=== PATIENT | female | born 1985 | race Caucasian/White ===

== ENCOUNTER → 2018-12-31 09:40 | Outpatient (CLI) | payer OTHER, SELFPAY ==
[2018-12-31 10:09] LABS: Add Manual Diff / Slide Review NO; Basophils Absolute Auto 0 /uL (0-100); Basophils Percent Auto 0.1 % (0-2); Eosinophils Absolute Auto 0 /uL (0-450); Eosinophils Percent Auto 0.1 % (2-4); Hematocrit 37.9 % (36-46); Hemoglobin 12.7 g/dL (12.0-16.0); Lymphocytes Absolute Auto 1400 /uL (1100-4500); Lymphocytes Percent Auto 16.8 % (25-40); Mean Corpuscular HGB Conc 33.6 % (30-36); Mean Corpuscular Hemoglobin 29.7 PG (26-34); Mean Corpuscular Volume 88.5 fL (80-100); Monocytes Absolute Auto 600 /uL (0-900); Monocytes Percent Auto 6.9 % (3-14); Neutrophils Absolute Auto 6300 /uL (1500-7000); Neutrophils Percent Auto 76.1 % (50-75); Platelet Count 257 X10^3/uL (150-400); Red Blood Cell Count 4.28 X10^6/uL (4.0-5.2); Red Cell Distribution Width 14.3 % (11.6-14.8); White Blood Cell Count 8.3 X10^3/uL (4.5-11.0)
[2018-12-31 10:42] LABS: Appearance Urine UA SL CLOUDY; Bilirubin Urine UA NEGATIVE (NEGATIVE); Color Urine UA YELLOW; Glucose Urine UA NEGATIVE (Negative); Ketones Urine UA NEGATIVE (NEGATIVE); Leukocyte Esterase Urine UA 1+ (NEGATIVE); Nitrite Urine UA POSITIVE (Negative); Occult Blood Urine UA NEGATIVE (Negative); Protein Urine UA NEGATIVE (Negative); Urobilinogen Urine UA 0.2 E.U./dL (0.2); pH Urine UA 6.5 (4.5-8.0)
[2018-12-31 11:02] LABS: RBC Urine 0-1/HPF (0-5/HPF); Squamous Epithelial Cell Urine 1-5 /HPF (0-5/HPF); WBC Urine 5-10/HPF (0-5/HPF)
[2018-12-31 11:03] LABS: Bacteria Urine Many (>30)
[2018-12-31 12:18] LABS: Hepatitis B Surface Antigen NEGATIVE s/c (NEGATIVE); Rubella Antibody IgG 26.2 IU/mL (>15)
[2018-12-31 12:32] LABS: HIV 1 and 2 Antibody NEGATIVE (NEGATIVE); Hep C Virus Ab w/Reflex Quant NEGATIVE s/c (NEGATIVE)
[2019-01-02 21:01] LABS: RPR Screen Nonreactive (Nonreactive)
== END ==
PROVIDERS: Visit Provider Family Medicine
DX: Z34.81 Encounter for supervision of other normal pregnancy, first trimester (principal)
CPT/HCPCS: 36415; 80055; 81003; 81015; 86703; 86787; 86803; 86850; 86900; 86901; 87077; 87086; 87186

== ENCOUNTER → 2019-01-08 13:44 | Outpatient (CLI) | payer OTHER, SELFPAY | PROVIDERS: PCP Family Medicine; Visit Provider Family Medicine | DX: R82.998 Other abnormal findings in urine (principal) | CPT/HCPCS: 87077; 87086; 87186 ==

== ENCOUNTER → 2019-01-13 08:59 | Outpatient (CLI) | payer OTHER, SELFPAY ==
[2019-01-20 14:25] LABS: Informaseq SEE SEPARATE REPORTS
== END ==
PROVIDERS: PCP Family Medicine; Visit Provider Family Medicine
DX: O09.529 Supervision of elderly multigravida, unspecified trimester (principal); Z36.9 Encounter for antenatal screening, unspecified; Z3A.11 11 weeks gestation of pregnancy
CPT/HCPCS: 36415; 81507

== ENCOUNTER → 2019-02-03 12:38 | Outpatient (CLI) | payer OTHER, SELFPAY ==
--- NOTE | 2019-02-03 12:39 | DI.US.S_ITS ---
PROCEDURE: US RENAL COMPLETE INDICATIONS: HISTORY KIDNEY STONES TECHNIQUE: Real-time scanning was performed of the kidneys and bladder, with image documentation. COMPARISON: None. FINDINGS: Kidneys: Kidneys are normal in size. Right kidney measures 12.3 cm long; left kidney measures 12.3 cm long. Right renal cortical thickness is 1.7 cm; left renal cortical thickness is 2.0 cm. Renal cortical echotexture is normal. No hydronephrosis. 5.6 mm nonobstructing right renal calcification. Bladder: Pre-void bladder volume is 99 mL. Post-void residual is 0 mL. Pre-void images demonstrate no intraluminal masses or stones. On pre-void images, neither ureteral jets are noted with color Doppler interrogation. (Of note, ureteral jets may not be detectable in up to 25% of cases due to insufficient differences in specific gravity between ureteral and bladder urine). Miscellaneous: No free pelvic fluid. IMPRESSION: 5.6 mm nonobstructing right renal calcification. Dictated by: Mikel Cline [facility] Interpreted: Jessica Renee MD on 02/03/2019 at 13:46 Approved by: Jessica Renee M.D. on 02/03/2019 at 14:40
== END ==
PROVIDERS: PCP Family Medicine; Visit Provider Family Medicine
DX: O26.899 Other specified pregnancy related conditions, unspecified trimester (principal); R10.9 Unspecified abdominal pain; N20.0 Calculus of kidney
CPT/HCPCS: 76770

== ENCOUNTER → 2019-02-26 11:14 | Outpatient (CLI) | payer OTHER, SELFPAY ==
[2019-02-26 14:59] LABS: Appearance Urine UA CLOUDY; Bilirubin Urine UA NEGATIVE (NEGATIVE); Color Urine UA YELLOW; Glucose Urine UA NEGATIVE (Negative); Ketones Urine UA NEGATIVE (NEGATIVE); Leukocyte Esterase Urine UA 1+ (NEGATIVE); Nitrite Urine UA POSITIVE (Negative); Occult Blood Urine UA TRACE-INTACT (Negative); Protein Urine UA NEGATIVE (Negative); Urobilinogen Urine UA 0.2 E.U./dL (0.2); pH Urine UA 6.5 (4.5-8.0)
[2019-02-26 15:16] LABS: Bacteria Urine Many (>30); Culture Indicated Urine Specimen Cultured; RBC Urine 5-10/HPF (0-5/HPF); Squamous Epithelial Cell Urine 1-5 /HPF (0-5/HPF); Transitional Epi Cells Urine 1-5/HPF (0-5/HPF); WBC Urine 30-100/HPF (0-5/HPF)
== END ==
PROVIDERS: PCP Family Medicine; Visit Provider Family Medicine
DX: R82.998 Other abnormal findings in urine (principal)
CPT/HCPCS: 81001; 87077; 87086; 87186

== ENCOUNTER → 2019-03-21 10:32 | Outpatient (CLI) | payer OTHER, SELFPAY ==
[2019-03-21 12:53] LABS: Appearance Urine UA SL CLOUDY; Bilirubin Urine UA NEGATIVE (NEGATIVE); Color Urine UA YELLOW; Glucose Urine UA NEGATIVE (Negative); Ketones Urine UA NEGATIVE (NEGATIVE); Leukocyte Esterase Urine UA 3+ (NEGATIVE); Nitrite Urine UA POSITIVE (Negative); Occult Blood Urine UA TRACE-LYSED (Negative); Protein Urine UA NEGATIVE (Negative); Specific Gravity Urine UA <=1.005 (1.000-1.035); Urobilinogen Urine UA 0.2 E.U./dL (0.2)
[2019-03-21 13:18] LABS: Bacteria Urine Many (>30); RBC Urine 0-1/HPF (0-5/HPF); Squamous Epithelial Cell Urine 1-5 /HPF (0-5/HPF); WBC Urine 30-100/HPF (0-5/HPF)
[2019-03-21 13:19] LABS: Culture Indicated Urine Specimen Cultured
== END ==
PROVIDERS: PCP Family Medicine; Visit Provider Nurse Practitioner Family
DX: R10.2 Pelvic and perineal pain (principal)
CPT/HCPCS: 81001; 87077; 87086; 87186

== ENCOUNTER → 2019-04-28 16:56 | Outpatient (CLI) | payer OTHER, SELFPAY | PROVIDERS: PCP Family Medicine; Visit Provider Family Medicine | DX: Z34.82 Encounter for supervision of other normal pregnancy, second trimester (principal); Z3A.26 26 weeks gestation of pregnancy | CPT/HCPCS: 87077; 87086; 87186 ==

== ENCOUNTER → 2019-05-06 12:43 | Outpatient (CLI) | payer OTHER, SELFPAY ==
[2019-05-06 14:29] LABS: Hematocrit 30.3 % (36-46); Hemoglobin 10.3 g/dL (12.0-16.0)
[2019-05-06 15:37] LABS: GTT (PREG) 1 Hour PP 50gm Dose 127 mg/dL (76-139)
[2019-05-06 16:25] LABS: HIV 1 & 2 Ab/Ag 4th Gen Combo NEGATIVE (NEGATIVE)
== END ==
PROVIDERS: PCP Family Medicine; Visit Provider Family Medicine
DX: O23.12 Infections of bladder in pregnancy, second trimester (principal); Z34.82 Encounter for supervision of other normal pregnancy, second trimester; Z3A.26 26 weeks gestation of pregnancy
CPT/HCPCS: 36415; 82105; 82950; 85014; 85018; 87389

== ENCOUNTER → 2019-05-21 12:00 | Outpatient (CLI) | payer OTHER, SELFPAY ==
--- NOTE | 2019-05-21 12:01 | DI.US.S_ITS ---
PROCEDURE: US OB LIMITED INDICATIONS: REEVALUATE CERVICAL LENGTH OUTSIDE/PRIOR DATING DATA: Last menstrual period (LMP): 10/27/18. LMP-based estimated date of delivery (BRANDIE): 08/03/19. TECHNIQUE: Real-time scanning was performed of the fetus, with image documentation. COMPARISON: None. FINDINGS: A single living intrauterine gestation is present. Presentation: Vertex Placenta: Placental position is left anterior, without previa. Amniotic fluid index: 16.0 cm, normal range is 5-24 cm. heart rate: 149 beats per minute. Maternal cervical canal: 3.4 cm long. Estimated gestational age from initial scan: 29 weeks 3 days. IMPRESSION: Limited study at clinician request evaluate cervical length of the mother, which is normal at 3.4 cm. Dictated by: Chinmay Varma M.D. on 05/21/2019 at 14:17 Approved by: Chinmay Varma M.D. on 05/21/2019 at 14:19
== END ==
PROVIDERS: PCP Family Medicine; Visit Provider Family Medicine
DX: O26.893 Other specified pregnancy related conditions, third trimester (principal); R10.2 Pelvic and perineal pain; Z3A.29 29 weeks gestation of pregnancy
CPT/HCPCS: 76815; 76817

== ENCOUNTER 2019-06-12 11:43 | Inpatient (IN) | payer OTHER, SELFPAY ==
[2019-06-12] MEDS: LACTATED RINGERS 1,000 ML 1000 ML IV (12:30)
--- NOTE | 2019-06-12 12:54 | DI.US.S_ITS ---
PROCEDURE: US OB LIMITED INDICATIONS: 32 weeks pre term labor OUTSIDE/PRIOR DATING DATA: Last menstrual period (LMP): 10/27/18. LMP-based estimated date of delivery (BRANDIE): 08/03/19. First dating scan (date and location): None available. Previous ultrasound for cervical length performed on 05/21/19 Estimated date of delivery (BRANDIE) from first dating scan: N./A.. TECHNIQUE: Real-time scanning was performed of the fetus, with image documentation. Endovaginal scanning: Yes COMPARISON: [facility], OB LIMITED, 05/21/2019, 12:14. FINDINGS: A single living intrauterine gestation is present. Presentation: Vertex Placenta: Placental position is anterior, without previa. Amniotic fluid index: 18.1 cm, normal range is 5-24 cm. heart rate: 132 beats per minute. Maternal cervical canal: 3.4 cm long, closed. Previous measurement was 3.4 cm. Estimated gestational age from LMP: 32 weeks 4 days. IMPRESSION: Normal, stable cervical length. Normal amniotic fluid. Dictated by: Don Carolina M.D. on 06/12/2019 at 14:33 Approved by: Don Carolina M.D. on 06/12/2019 at 14:37
[2019-06-12] MEDS: NIFEdipine 10 MG CAPSULE PO ×4 (13:04→14:18)
[2019-06-12 13:08] LABS: Bacteria Urine None Seen; RBC Urine None Seen (0-5/HPF)
[2019-06-12 13:10] LABS: Appearance Urine UA CLEAR; Bilirubin Urine UA NEGATIVE (NEGATIVE); Color Urine UA YELLOW; Glucose Urine UA NEGATIVE (Negative); Ketones Urine UA NEGATIVE (NEGATIVE); Leukocyte Esterase Urine UA 2+ (NEGATIVE); Nitrite Urine UA NEGATIVE (Negative); Occult Blood Urine UA NEGATIVE (Negative); Protein Urine UA NEGATIVE (Negative); Urobilinogen Urine UA 0.2 E.U./dL (0.2)
[2019-06-12 13:11] LABS: Add Manual Diff / Slide Review NO; Basophils Absolute Auto 0 /uL (0-100); Basophils Percent Auto 0.5 % (0-2); Eosinophils Absolute Auto 0 /uL (0-450); Eosinophils Percent Auto 0.1 % (2-4); Hematocrit 31.4 % (36-46); Hemoglobin 10.2 g/dL (12.0-16.0); Lymphocytes Absolute Auto 1900 /uL (1100-4500); Lymphocytes Percent Auto 19.3 % (25-40); Mean Corpuscular HGB Conc 32.4 % (30-36); Mean Corpuscular Hemoglobin 27.9 PG (26-34); Mean Corpuscular Volume 86.2 fL (80-100); Monocytes Absolute Auto 800 /uL (0-900); Monocytes Percent Auto 8.4 % (3-14); Neutrophils Absolute Auto 7200 /uL (1500-7000); Neutrophils Percent Auto 71.7 % (50-75); Platelet Count 296 X10^3/uL (150-400); Red Blood Cell Count 3.64 X10^6/uL (4.0-5.2); Red Cell Distribution Width 13.8 % (11.6-14.8)
[2019-06-12 13:19] LABS: Culture Indicated Urine Specimen Cultured; WBC Urine 5-10/HPF (0-5/HPF)
--- NOTE | 2019-06-12 13:20 | PM.HP.1 ---
History of Present Illness History of Present Illness Date Patient Seen: 06/12/19 Time Patient Seen: 13:20 Chief complaint: Narrative: 34-year-old G5 para 3 estimated due date of 07/30/2019 consistent with LMP and early ultrasound. care problems include history of premature and precipitous delivery recurrent urinary tract infections kidney stones and anemia. Patient's care has been followed by maternal medicine. She was given Prometrium vaginally for pre term labor as well as daily Keflex for recurrent urinary tract infections with E coli and kidney stones. She is also on iron supplementation because of anemia. Patient has had routine follow-up in care. And last ultrasound done May 21 so cervical length greater than 3 cm. Patient states she was doing fine. Last night had some mild intermittent contractions. Then this morning woke up and her contractions became more regular. And even had some uncomfortableness. At that point patient proceeded to present to the labor and delivery floor for evaluation. Patient denies any fevers or chills. Patient denies any vaginal bleeding. Patient denies any leakage of fluid. She is complaining of intermittent contractions. No complaints of headache dizziness lightheadedness chest pain fevers chills nausea vomiting. history was reviewed. Vaginal delivery at 38 weeks vaginal delivery at 35 weeks and vaginal delivery at 33 weeks. Patient's medical history includes allergies to sulfa Phenergan seasonal allergies kidney stones and urinary tract infection history of cholecystectomy and wisdom teeth. Social history does not smoke or use recreational drugs occasional alcohol when not Gynecological history history of abnormal Pap smears with HPV positive and colposcopy x3. Denies history of gonorrhea or chlamydia. labs blood type AB-positive antibody screen negative recent hemoglobin hematocrit 12.7 and 37.9 platelet count 257 VDRL nonreactive hepatitis-B surface antigen negative HIV negative GC chlamydia negative rubella immune hep C negative Pap smear within normal limits varicella immune. Cell free DNA negative for genetic defects Patient History Family & Social History Tobacco & Substance use: Smoking Status Never smoker Meds Home Medications and Allergies Home Medications Medication Instructions Recorded Confirmed Type prenat.vits,chris,[id number] 1 tab PO DAILY 12/17/18 05/26/19 History acetaminophen 500 mg tablet 1,000 mg PO QID PRN 03/21/19 05/26/19 History progesterone micronized 200 mg 200 mg PO BEDTIME 03/21/19 05/26/19 History capsule cephalexin 500 mg capsule 500 mg PO DAILY #30 cap 03/31/19 05/26/19 Rx Allergies Allergy/AdvReac Type Severity Reaction Status Date / Time promethazine [From Phenergan] Allergy Verified 05/26/19 16:03 Sulfa (Sulfonamide Allergy Verified 05/26/19 16:03 Antibiotics) Exam Narrative Exam Narrative: . General: Alert no apparent distress. Affect is appropriate. HEENT: Neck is supple without lymphadenopathy pupils equal round and reactive. Cardio: S1-S2 regular rate and rhythm. Respiratory: Lungs clear to auscultation. Abdomen: Gravid. Extremities: Normal deep tendon reflexes trace edema. Vaginal exam: Thick cervix soft midline closed [place]: Intermittent contractions heart tones: Category 1 tracing Objective Labs Result Diagrams: 06/12/19 12:50 Labs: Laboratory Results - last 24 hr 06/12/19 06/12/19 12:50 12:50 WBC 10.0 RBC 3.64 L Hgb 10.2 L Hct 31.4 L MCV 86.2 MCH 27.9 MCHC 32.4 RDW 13.8 Plt Count 296 Neut % (Auto) 71.7 Lymph % (Auto) 19.3 L [place] % (Auto) 8.4 Eos % (Auto) 0.1 L Baso % (Auto) 0.5 Neut # (Auto) 7200 H Lymph # (Auto) 1900 [place] # (Auto) 800 Eos # (Auto) 0 Baso # (Auto) 0 Urine Color Yellow Urine Appearance Clear Urine pH 7.0 Ur Specific [place] 1.010 Urine Protein Negative Urine Glucose (UA) Negative Urine Ketones Negative Urine Occult Blood Negative Urine Nitrate Negative Urine Bilirubin Negative Urine Urobilinogen 0.2 Ur Leukocyte Esterase 2+ H Urine RBC None seen Urine WBC 5-10/hpf H Urine Bacteria None seen Ur Culture Indicated? Specimen cultured Assessment & Plan Assessment & Plan narrative: 34-year-old G5 para 3 at 32 and 6 7th weeks gestational age consistent with LMP and early ultrasound in labor. Patient has a history of early labor with perceptive deliveries. Patient is rena regularly. She is afebrile vital signs are stable. Send for CBC and urinalysis. fibronectin test. Ultrasound for Cervical length. Start nifedipine per protocol. Provide betamethasone 12 mg IM. Depending on the information collected above. And because of patient's high risk status and previous history of delivery. Follow-up information. Patient's cervical length on ultrasound is 3.2. fibronectin is negative. Urinalysis shows 2+ leukocyte Estrace which will be sent for culture. Patient was given betamethasone 12 mg IM started on 2 g of Ancef. Patient was given nifedipine per the protocol. Patient had gradual improvement of contractions. But for contractions after while started to speed up her contractions became moderately intense again. During hospital stay vital signs were stable. After talking with the will be specialist at [facility] recommendation for patient to be transferred because of high risk . Patient will be transferred there and the accepting physician will be dr Clancy.
[2019-06-12 13:27] LABS: Strep Grp B PCR NEG for Grp B Strep
[2019-06-12] MEDS: BETAMETHASONE 30 MG/5 ML MDV 12 MG IM (13:35)
[2019-06-12 13:37] LABS: Fetal Fibronectin Negative
[2019-06-12] MEDS: CEFAZOLIN 2 GM/100 ML FROZ.PIGGY IV (14:04)
== END 2019-06-12 16:43 | disposition short-term general hospital (02) | DRG 832 ==
PROVIDERS: Admitting Provider Family Medicine; PCP Family Medicine; Visit Provider Family Medicine
DX: O60.03 Preterm labor without delivery, third trimester (principal); O23.43 Unspecified infection of urinary tract in pregnancy, third trimester; N39.0 Urinary tract infection, site not specified; O09.213 Supervision of pregnancy with history of pre-term labor, third trimester; Z3A.32 32 weeks gestation of pregnancy; O99.013 Anemia complicating pregnancy, third trimester
CPT/HCPCS: 59025; 59050; 76815; 76817; 81001; 82731; 85025; 87077; 87081; 87086; 87186; 87653; 96360; 96372; 99222; G0378; G0379; J0690; J0702

== ENCOUNTER 2019-07-07 19:30 | Inpatient (IN) | payer OTHER, SELFPAY ==
--- NOTE | 2019-07-07 20:12 | PM.HP.1 ---
History of Present Illness History of Present Illness Date Patient Seen: 07/07/19 Time Patient Seen: 20:12 Chief complaint: obs Narrative: [age] G5 para 3 with an estimated due date of 08 02 2019 based on LMP and 07/30/2019 based on ultrasound which puts her at 36 weeks and 4 days. care complicated with history of premature and pre separate if deliveries kidney stones with urinary tract infections recurrent during on prophylactics Keflex and anemia on iron supplementation. Patient followed by Maternal- Medicine. She was on Prometrium vaginal up to 36 weeks Keflex from 20/6 weeks on ferrous gluconate. And vitamins. Patient had 2 different admissions to [facility] for labor was in the hospital for a week or so on magnesium. Patient then was released and then ended up going back 1 additional time because of pre term labor. She presents to our labor and delivery floor this evening with contraction regularly for the last 4 hours. She was found to be dilated to 7 cm with an intact bag and rena regularly. Vital signs were stable she was afebrile GBS status is negative. labs AB-positive blood type antibody screen negative hemoglobin 37.9 VDRL nonreactive hepatitis C negative hepatitis B negative GC chlamydia negative rubella immune genetic screening with cell free DNA negative. Twenty week ultrasound normal as well as multiple other ultrasounds normal anatomical screen. Medical history includes seasonal allergies anemia kidney stones with recurrent urinary tract infection The social history no smoking no alcohol during no recreational drugs stable partner relationship Gynecological history history of HPV colposcopy x3 Surgical history wisdom teeth lap choly Patient History Family & Social History Tobacco & Substance use: Smoking Status Never smoker Meds Home Medications and Allergies Home Medications Medication Instructions Recorded Confirmed Type prenat.vits,chris,[id number] 1 tab PO DAILY 12/17/18 07/02/19 History acetaminophen 500 mg tablet 1,000 mg PO QID PRN 03/21/19 07/02/19 History progesterone micronized 200 mg 200 mg PO BEDTIME 03/21/19 07/02/19 History capsule cephalexin 500 mg capsule 500 mg PO DAILY #30 cap 03/31/19 07/02/19 Rx Allergies Allergy/AdvReac Type Severity Reaction Status Date / Time promethazine [From Phenergan] Allergy Verified 07/02/19 09:57 Sulfa (Sulfonamide Allergy Verified 01/08/20 09:57 Antibiotics) Exam Narrative Exam Narrative: . General: Alert no apparent distress. Affect is appropriate. Rena it is uncomfortable. HEENT: Neck is supple without lymphadenopathy pupils equal round and reactive. Cardio: S1-S2 regular rate and rhythm. Respiratory: Lungs clear to auscultation. Abdomen: Gravid. Extremities: Normal deep tendon reflexes trace edema. Vaginal cervix exam: 9 cm bulging bag [place]: Rena regularly every 3-5 minutes with 60 minute contractions moderate and strength. heart tones: Category 2 tracing Assessment & Plan Assessment & Plan narrative: 34-year-old G5 para 3 at 36 weeks and 4 days gestational age in active labor history of labor precepted this delivery. Patient has a bulging bag at 9 cm. In patient care orders were written for. Type and screen anemia test and IV fluids were started. Patient's consent and plan were discussed with patient and partner. Questions were answered including risks benefits and complications up and delivery.
[2019-07-07] MEDS: LACTATED RINGERS 1,000 ML 125 ML IV (20:15)
[2019-07-07 20:39] LABS: Add Manual Diff / Slide Review NO; Basophils Absolute Auto 100 /uL (0-100); Basophils Percent Auto 0.9 % (0-2); Eosinophils Absolute Auto 0 /uL (0-450); Eosinophils Percent Auto 0.2 % (2-4); Hematocrit 33.4 % (36-46); Hemoglobin 10.9 g/dL (12.0-16.0); Lymphocytes Absolute Auto 2800 /uL (1100-4500); Lymphocytes Percent Auto 23.5 % (25-40); Mean Corpuscular HGB Conc 32.6 % (30-36); Mean Corpuscular Hemoglobin 27.4 PG (26-34); Mean Corpuscular Volume 84.3 fL (80-100); Monocytes Absolute Auto 1100 /uL (0-900); Neutrophils Absolute Auto 7800 /uL (1500-7000); Neutrophils Percent Auto 66.4 % (50-75); Platelet Count 265 X10^3/uL (150-400); Red Blood Cell Count 3.97 X10^6/uL (4.0-5.2); Red Cell Distribution Width 15.8 % (11.6-14.8); White Blood Cell Count 11.8 X10^3/uL (4.5-11.0)
--- NOTE | 2019-07-07 20:51 | PM.PROC.1 ---
Procedures Date/Time Date of procedure: 07/07/19 Time of procedure: 20:52 General Procedure description: Vaginal delivery Stage I of labor. Approximately 4 hours. Patient presented to labor and delivery for at 7 cm bulging bag. heart tones were reassuring vital signs were stable blood type was drawn. IV fluids was started. Patient had rapid progression from 7 cm to complete. At complete she had rupture of membranes with clear fluid copious amounts. Rupture of membrane was at +1 station. Patient then immediately began pushing. During stage I of labor per patient had the category 1 and category 2 tracing. Mom had no anesthesia. GBS status was negative. Stage II of labor. Approximately 15 minutes. Delivery of female infant in the vertex position occiput anterior. Patient made rapid descent through the canal. Mom did well through the pushing stage. Had the delivery of the head. Baby was found to have a nuchal cord which was cut and clamped before the delivery of the shoulders. Patient was placed on mother's abdomen baby spontaneously cried was vigorous. Had good color good tone. Category 2 tracing with the decelerations consistent with early and variable D cells. Stage III of labor. Delivery of intact placenta 5 minutes after the of the baby. Three-vessel cord. Placenta looked intact. Mom's blood loss was estimated to be at 200 cc mom and baby were resting comfortably. Mom was given 10 units of IM Pitocin. On inspection of the vagina and cervix there were no cervical or vaginal tears that needed to be repaired.
[2019-07-07] MEDS: LANOLIN OINT 7 GM 1 APPLIC TOP (22:38)
[2019-07-07] MEDS: IBUPROFEN 600 MG TABLET PO (22:38)
[2019-07-07] MEDS: HYDROCODONE/ACET 5/325 TABLET 1 TAB PO (22:39)
[2019-07-08 01:03] VITALS: BP 139/58
[2019-07-08] MEDS: IBUPROFEN 600 MG TABLET PO ×2 (04:30→10:36)
[2019-07-08 05:15] LABS: Hematocrit 31.5 % (36-46); Hemoglobin 10.2 g/dL (12.0-16.0)
--- NOTE | 2019-07-08 07:58 | PM.PN.1 ---
Subjective Subjective Date Patient Seen: 07/08/19 Time Patient Seen: 07:58 Interval history: Patient seen and evaluated this morning doing well. Did well overnight. On ibuprofen for pain. M mild vaginal bleeding. Eating well and tolerating oral foods. Mild lower extremity edema no headache blurry vision. Chest pain or shortness of breath. Exam Vital Signs (past 8 hours): - 07/08/19 01:03 Blood Pressure 139/58 L Narrative Exam Narrative: General: Alert no apparent distress. Affect is appropriate. [place] it is uncomfortable. HEENT: Neck is supple without lymphadenopathy pupils equal round and reactive. Cardio: S1-S2 regular rate and rhythm. Respiratory: Lungs clear to auscultation. Abdomen: Uterus firm. Extremities: Normal deep tendon reflexes trace edema. Objective Labs Result Diagrams: 07/08/19 04:56 Labs: Laboratory Results - last 24 hr 07/07/19 07/07/19 07/08/19 20:22 20:22 04:56 WBC 11.8 H RBC 3.97 L Hgb 10.9 L 10.2 L Hct 33.4 L 31.5 L MCV 84.3 MCH 27.4 MCHC 32.6 RDW 15.8 H Plt Count 265 Neut % (Auto) 66.4 Lymph % (Auto) 23.5 L [place] % (Auto) 9.0 Eos % (Auto) 0.2 L Baso % (Auto) 0.9 Neut # (Auto) 7800 H Lymph # (Auto) 2800 [place] # (Auto) 1100 H Eos # (Auto) 0 Baso # (Auto) 100 Blood Type AB Positive Antibody Screen Negative Assessment & Plan Assessment & Plan narrative: Post operative day 1. Vaginal delivery without complications. Patient is doing well. Vital signs are stable. Hemoglobin hematocrit looks good. DC IV today. Continue with IV fluids. Up ambulate. Ibuprofen for pain. Breast-feeding is going well. Continue to monitor. Anticipate discharge tomorrow.
[2019-07-08] MEDS: PRENATAL VIT,CALC/IRON/FOLIC 1 TABLET 1 TAB PO (09:09)
[2019-07-08] MEDS: DOCUSATE 100 MG CAPSULE PO (09:09)
[2019-07-09] MEDS: IBUPROFEN 600 MG TABLET PO (06:18)
[2019-07-09] MEDS: PRENATAL VIT,CALC/IRON/FOLIC 1 TABLET 1 TAB PO (07:52)
[2019-07-09] MEDS: DOCUSATE 100 MG CAPSULE PO (07:52)
--- NOTE | 2019-07-09 07:57 | P.DS_ITS ---
History of Present Illness History of Present Illness Chief complaint: maternity Narrative: [age] G5 para 3 with an estimated due date of 08 02 2019 based on LMP and 07/30/2019 based on ultrasound which puts her at 36 weeks and 4 days. care complicated with history of premature and pre separate if deliveries kidney stones with urinary tract infections recurrent during on prophylactics Keflex and anemia on iron supplementation. Patient followed by Maternal- Medicine. She was on Prometrium vaginal up to 36 weeks Keflex from 20/6 weeks on ferrous gluconate. And vitamins. Patient had 2 different admissions to [facility] for labor was in the hospital for a week or so on magnesium. Patient then was released and then ended up going back 1 additional time because of pre term labor. She presents to our labor and delivery floor this evening with contraction regularly for the last 4 hours. She was found to be dilated to 7 cm with an intact bag and rena regularly. Vital signs were stable she was afebrile GBS status is negative. labs AB-positive blood type antibody screen negative hemoglobin 37.9 VDRL nonreactive hepatitis C negative hepatitis B negative GC chlamydia negative rubella immune genetic screening with cell free DNA negative. Twenty week ultrasound normal as well as multiple other ultrasounds normal anatomical screen. 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 Affect is appropriate. Rena it is uncomfortable. HEENT: Neck is supple without lymphadenopathy pupils equal round and reactive. Cardio: S1-S2 regular rate and rhythm. Respiratory: Lungs clear to auscultation. Abdomen: Uterus firm. Incision clean dry and intact. Extremities: Normal deep tendon reflexes trace edema. Objective Labs Result Diagrams: 07/08/19 04:56 Discharge Plan Discharge Plan Patient Disposition: Home Discharge orders & Medications Prescriptions: New docusate sodium [DOK] 100 mg Capsule 100 mg PO DAILY Qty: 20 RF: 0 ibuprofen 600 mg Tablet 600 mg PO Q6HR PRN (Reason: Pain, Mild (1-3)) Qty: 30 RF: 0 Continued cephalexin [Keflex] 500 mg capsule 500 mg PO DAILY Qty: 30 RF: 3 prenat.vits,chris,[id number] tablet 1 tab PO DAILY RF: 0 acetaminophen [Tylenol Extra Strength] 500 mg tablet 1,000 mg PO QID PRN (Reason: pt wants as needed) RF: 0 Discontinued progesterone micronized [Prometrium] 200 mg capsule 200 mg PO BEDTIME RF: 0 Follow up/Referrals: Gildardo Carlin MD [Primary Care Provider] - Visit Report/Discharge Packet Visit Report Forms: Patient Portal/API, Stroke Signs & Symptoms Discharge Data Primary Care Provider: Gildardo Carlin
[2019-07-09 11:40] VITALS: BP 139/58; PULSE 84; RESP 16; TEMP 36.8
== END 2019-07-09 11:35 | disposition home or self-care (01) | DRG 807 ==
PROVIDERS: Admitting Provider Family Medicine; PCP Family Medicine; Visit Provider Family Medicine
DX: O99.02 Anemia complicating childbirth (principal); Z37.0 Single live birth; D64.9 Anemia, unspecified; Z3A.36 36 weeks gestation of pregnancy; O69.1XX0 Labor and delivery complicated by cord around neck, with compression, not applicable or unspecified
CPT/HCPCS: 36415; 59050; 59400; 85014; 85018; 85025; 86850; 86900; 86901; G0379

== ENCOUNTER → 2019-07-15 16:46 | Outpatient (CLI) | payer OTHER, SELFPAY ==
[2019-07-15 18:08] LABS: Appearance Urine UA CLEAR; Bilirubin Urine UA NEGATIVE (NEGATIVE); Color Urine UA YELLOW; Glucose Urine UA NEGATIVE (Negative); Ketones Urine UA NEGATIVE (NEGATIVE); Leukocyte Esterase Urine UA TRACE (NEGATIVE); Nitrite Urine UA NEGATIVE (Negative); Occult Blood Urine UA 1+ (Negative); Protein Urine UA NEGATIVE (Negative); Urobilinogen Urine UA 0.2 E.U./dL (0.2)
[2019-07-15 18:37] LABS: pH Urine UA 6.5 (4.5-8.0)
[2019-07-15 18:38] LABS: Amorphous Sediment Urine 1+; RBC Urine 0-1/HPF (0-5/HPF); Renal Epithelial Cells Urine 0-1/HPF (0-1/HPF); Squamous Epithelial Cell Urine 0-1 /HPF (0-5/HPF); WBC Urine 1-5/HPF (0-5/HPF)
[2019-07-15 18:39] LABS: Bacteria Urine Occasional (0-1); Culture Indicated Urine Specimen Cultured
== END ==
PROVIDERS: PCP Family Medicine; Visit Provider Family Medicine
DX: R30.0 Dysuria (principal)
CPT/HCPCS: 81003; 81015; 87086

== ENCOUNTER → 2019-09-01 08:56 | Outpatient (CLI) | payer OTHER, SELFPAY ==
--- NOTE | 2019-09-01 | DI.RAD.S_ITS ---
PROCEDURE: XR ABDOMEN 1V INDICATIONS: KIDNEY STONES TECHNIQUE: One view of the abdomen acquired. COMPARISON: None. FINDINGS: Surgical changes and devices: Cholecystectomy clips are present in the gallbladder fossa. An IUD is projected over the pelvis. Bowel: Bowel gas pattern is normal. Soft tissues: No suspicious abdominal calcifications. Visualized solid organ contours appear normal in size. Bones: No suspicious bony lesions. IMPRESSION: No acute intra-abdominal findings. Dictated by: Emeli Villagran M.D. on 09/01/2019 at 10:31 Approved by: Emeli Villagran M.D. on 09/01/2019 at 10:39
== END ==
PROVIDERS: PCP Family Medicine; Referring Provider Urology; Visit Provider Urology
DX: N20.0 Calculus of kidney (principal)
CPT/HCPCS: 74018